=== PATIENT | male | born 1940 | race Caucasian/White ===

== ENCOUNTER 2016-10-08 17:15 | Emergency (ER) | payer OTHER ==
[2016-10-08 17:38] VITALS: BP 114/73
[2016-10-08] MEDS ORDERED: AMOX/CLAV 875 MG/125 MG TABLET PO STA (17:45)
[2016-10-08] MEDS ORDERED: SULFAMETH/TRIMETH DS 800/160 MG TABLET PO STA (17:45)
--- NOTE | 2016-10-08 17:50 | ED Physician Documentation ---
PD HPI LOWER EXT INJURY - Stated complaint Stated Complaint: R LEG LAC - Chief complaint Chief Complaint: Laceration - History obtained from History obtained from: Patient, Family () - History of Present Illness PD HPI LOW EXT INJURY LOCATION: Other (76-year-old gentleman visiting from [facility]. He has a history of kidney transplant and is maintained on cyclosporine. He also has Parkinson's disease. 4 days ago he sustained basically a deep paper cut on the right corral which about 2 days ago started to look infected. Per the about every time he gets any sort of injury like this on the leg it becomes infected. They deny fevers or chills or systemic symptoms.) Review of Systems Constitutional: denies: Fever, Chills Nose: denies: Rhinorrhea / runny nose, Congestion Respiratory: denies: Dyspnea, Cough GI: denies: Abdominal Pain PD PAST MEDICAL HISTORY - Past Medical History Past Medical History: Yes Cardiovascular: [place] Neuro: Dementia, TIA, Parkinson's - Past Surgical History Past Surgical History: Yes Cardiovascular: Coronary stent - Present Medications Home Medications: Ambulatory Orders Medication Instructions Recorded Confirmed Amox/Clav 875/125 [Augmentin] 1 each PO Q12H #14 tablet 10/08/16 Cyclosporine, Modified 5 tab PO DAILY #50 capsule 10/08/16 [Cyclosporine Modified] Sulfamethoxazole/Trimethoprim 1 each PO BID 7 Days 10/08/16 [Sulfamethoxazole-Tmp Ds Tablet] - Allergies Allergies/Adverse Reactions: Allergies Allergy/AdvReac Type Severity Reaction Status Date / Time cephalexin monohydrate * Allergy Unknown Verified 10/08/16 17:35 [From [employer]] - Social History Does the pt smoke?: No Smoking Status: Never smoker Does the pt drink ETOH?: No Does the pt have substance abuse?: No - Immunizations Immunizations are current?: Yes PD ED PE NORMAL - Vitals Vital signs reviewed: Yes - General General: Alert and oriented X 3, No acute distress - Extremities Extremities: Other (There is a subcutaneous laceration measuring about 6 cm with surrounding cellulitis and some purulent drainage which was sent for culture to the anterior right corral. There is no bony tenderness or limited range of motion. No pain out of proportion to exam.) - Neuro Neuro: Alert and oriented X 3, Normal speech - Psych Psych: Normal mood, Normal affect Results - Vitals Vitals: Vital Signs - 24 hr 10/08/16 17:29 Temperature 36.8 C Heart Rate 64 Respiratory 18 Rate Blood Pressure 114/73 O2 Saturation 97 Oxygen O2 Source Room air PD MEDICAL DECISION MAKING - ED course ED course: 76-year-old gentleman with Parkinson's and status post renal transplant presents with cellulitis from wound infection on the right corral. I discussed that given his underlying state I recommended blood work, IV antibiotics, and potential admission. The felt that he would do well and always has done well with similar infections with just oral antibiotics. A culture was taken and he is started on Augmentin and Bactrim. I advised her to watch the wound closely and return for any clinical worsening, spreading redness, or fevers. They did also need a refill of the cyclosporine, due to a mixup at the [place] it was sent to the wrong address. Departure - Departure Disposition: 01 Home, Self Care Clinical Impression: Infected laceration of skin, Renal transplant recipient Condition: Good Record reviewed to determine appropriate education?: Yes Instructions: ED Infec Skin Cellulitis Prescriptions: Amox/Clav 875/125 [Augmentin] 1 each PO Q12H #14 tablet Cyclosporine, Modified [Cyclosporine Modified] 5 tab PO DAILY #50 capsule Sulfamethoxazole/Trimethoprim [Sulfamethoxazole-Tmp Ds Tablet] 1 each PO BID 7 Days Comments: Return immediately if he worsens, develops a fever, or the redness spreads. We are performing a wound culture, the results should be done in 48-72 hours. If antibiotic change is necessary we will call you. Return if worse in the meantime, especially if he develop increased pain, fevers, cannot keep down the medication. Otherwise follow-up with your physician in approximately 2-3 days. Follow-up with your physician immediately on return home.
[2016-10-08] MEDS ORDERED: SULFAMETH/TRIMETH DS 800/160 MG TABLET PO ONE (18:03)
[2016-10-08] MEDS ORDERED: AMOX/CLAV 875 MG/125 MG TABLET PO ONE (18:03)
== END 2016-10-08 18:23 | disposition home or self-care (01) ==
LOC: ED 17:15
DX: S81.811A Laceration without foreign body, right lower leg, initial encounter (principal); L03.115 Cellulitis of right lower limb; W45.8XXA Other foreign body or object entering through skin, initial encounter; Z94.0 Kidney transplant status; G20 Parkinson's disease; F02.80 Dementia in other diseases classified elsewhere, unspecified severity, without behavioral disturbance, psychotic disturbance, mood disturbance, and anxiety; I25.2 Old myocardial infarction; Z86.73 Personal history of transient ischemic attack (TIA), and cerebral infarction without residual deficits
CPT/HCPCS: 87070; 87077; 87181; 87205; 99283; A9270